=== PATIENT | male | born 1960 | race Caucasian/White ===

== ENCOUNTER 2021-05-22 16:48 | Inpatient (IN) | payer OTHER ==
[~2021-05-22] VITALS: Ht 160 cm; Wt 61.6 kg
[2021-05-22 19:15] LABS: BASOPHILS % (AUTO) 0.5 % (0.0-2.0); EOSINOPHILS % (AUTO) 1.1 % (1.0-6.0); HEMATOCRIT 41.5 % (41-53); HEMOGLOBIN 13.7 g/dL (13.5-17.5); LYMPHOCYTES # (AUTO) 1.4 K/uL (1.0-4.8); LYMPHOCYTES % (AUTO) 27.9 % (22.0-44.0); MEAN CORPUSCULAR HEMOGLOBIN 30.4 pg (26.0-34.0); MEAN CORPUSCULAR VOLUME 92 fL (80-100); MONOCYTES # (AUTO) 0.4 K/uL (0.1-1.0); MONOCYTES % (AUTO) 7.9 % (2.0-9.0); NEUTROPHILS # (AUTO) 3.2 K/uL (1.8-7.7); NEUTROPHILS % (AUTO) 62.6 % (40.0-70.0); PLATELET COUNT (AUTO) 195 K/uL (150-450); RED CELL DISTRIBUTION WIDTH 13.7 % (11.5-14.5)
[2021-05-22 19:26] LABS: ANION GAP 2 mmol/L (8-16); CALCIUM, TOTAL 8.5 mg/dL (8.8-10.5); CARBON DIOXIDE 32 mmol/L (22-29); CHLORIDE 107 mmol/L (98-107); CREATININE 0.75 mg/dL (0.60-1.30); GLOMERULAR FILTR. RATE CALC > 60 mL/min (>60); GLUCOSE,RANDOM 105 mg/dL (70-110); POTASSIUM 5.1 mmol/L (3.5-5.1); SODIUM SERUM 141 mmol/L (136-145); UREA NITROGEN, BLOOD 14 mg/dL (7-18)
[2021-05-22] MEDS ORDERED: DICYCLOMINE HCL 10 MG CAPSULE PO PRN (19:30)
[2021-05-22] MEDS ORDERED: MAG HYDROX/AL HYDROX/SIMETH ES 30 ML SUSPENSION UDCUP PO PRN (19:30)
[2021-05-22] MEDS ORDERED: LOPERAMIDE HCL 2 MG/15 ML SUSPENSION UDCUP PO PRN (19:30)
[2021-05-22] MEDS ORDERED: LORazepam 1 MG TABLET PO PRN (19:30)
[2021-05-22] MEDS ORDERED: MORPHINE SULFATE 2 MG/ML SYRINGE IVP PRN (19:30)
[2021-05-22] MEDS ORDERED: HYDROCODONE/ACETAMINOPHEN 5-325 MG TABLET PO PRN (19:30)
[2021-05-22] MEDS ORDERED: ALBUTEROL SULFATE 2.5 MG/0.5 ML NEB SOLUTION NEB PRN (19:30)
[2021-05-22] MEDS ORDERED: HydrOXYzine PAMOATE 50 MG CAPSULE PO PRN (19:30)
[2021-05-22] MEDS ORDERED: CloNIDine HCL 0.1 MG TABLET PO PRN (19:30)
[2021-05-22] MEDS ORDERED: IPRATROPIUM BROMIDE 0.5 MG/2.5 ML NEB SOLUTION NEB PRN (19:30)
[2021-05-22] MEDS ORDERED: BACLOFEN 10 MG TABLET PO PRN (19:30)
[2021-05-22] MEDS ORDERED: ACETAMINOPHEN 325 MG TABLET PO PRN ×2 (19:30)
[2021-05-22] MEDS ORDERED: ZOLPIDEM TARTRATE 5 MG TABLET PO PRN (19:30)
[2021-05-22] MEDS ORDERED: PROMETHAZINE HCL 25 MG TABLET PO PRN (19:30)
[2021-05-22] MEDS ORDERED: TraZODone HCL 50 MG TABLET PO PRN (19:30)
[2021-05-22] MEDS ORDERED: ONDANSETRON HCL 4 MG/2 ML VIAL IVP PRN (19:30)
[2021-05-22] MEDS ORDERED: MAGNESIUM HYDROXIDE SUSPENSION 30 ML UDCUP PO PRN (19:30)
[2021-05-22] MEDS ORDERED: IBUPROFEN 600 MG TABLET PO PRN (19:30)
[2021-05-22] MEDS ORDERED: BISACODYL 10 MG RECTAL RECTAL SUPPOSITORY PR PRN (19:30)
[2021-05-22] MEDS ORDERED: LORazepam 2 MG/ML VIAL IVP PRN (19:30)
[2021-05-22 19:32] LABS: ALANINE AMINOTRANSFERASE 28 U/L (12-78); ALBUMIN 3.5 g/dL (3.4-5.0); ALKALINE PHOSPHATASE 87 U/L (46-116); ASPARTATE AMINOTRANSFERASE 21 U/L (15-37); BILIRUBIN,TOTAL 0.2 mg/dL (0.1-1.0); TOTAL PROTEIN, SERUM 6.5 g/dL (6.4-8.2)
[2021-05-22] MEDS: SODIUM CHLORIDE 0.45% 1,000 ML IV SCH (20:25)
[2021-05-22 21:31] VITALS: BP 136/69
[2021-05-22 23:22] VITALS: BP 141/70
[2021-05-23] MEDS: ChlordiazePOXIDE HCL 25 MG CAPSULE PO SCH ×5 (00:50→23:08)
[2021-05-23] MEDS: HEPARIN SODIUM,PORCINE 5,000 UNITS/ML VIAL SQ SCH ×4 (00:54→23:08)
[2021-05-23 04:24] VITALS: BP 104/58
[2021-05-23 08:00] VITALS: BP 92/61
[2021-05-23] MEDS: MULTIVITAMINS, THERAPEUTIC TABLET PO SCH (09:00)
[2021-05-23] MEDS: THIAMINE 100 MG TABLET PO SCH (09:00)
[2021-05-23] MEDS: SODIUM CHLORIDE 0.45% 1,000 ML IV SCH ×2 (09:00→21:32)
[2021-05-23] MEDS: FOLIC ACID 1 MG TABLET PO SCH (09:00)
[2021-05-23 11:32] VITALS: BP 93/47
[2021-05-23 15:50] LABS: AMPHET/METH SCREEN,URINE NEGATIVE (NEGATIVE); BARBITURATE SCREEN, URINE NEGATIVE (NEGATIVE); BENZODIAZEPINES SCREEN,URINE NEGATIVE (NEGATIVE); CANNABINOID SCREEN,URINE NEGATIVE (NEGATIVE); COCAINE SCREEN,URINE NEGATIVE (NEGATIVE); METHADONE SCREEN, URINE NEGATIVE (NEGATIVE); OPIATE SCREEN,URINE NEGATIVE (NEGATIVE)
[2021-05-23 15:52] LABS: PHENCYCLIDINE SCREEN,URINE NEGATIVE (NEGATIVE)
[2021-05-23 16:35] VITALS: BP 104/52
[2021-05-23 20:00] VITALS: BP 108/57
[2021-05-23 23:35] VITALS: BP 103/70
[2021-05-24 05:18] VITALS: BP 106/65
[2021-05-24] MEDS: ChlordiazePOXIDE HCL 25 MG CAPSULE PO SCH ×3 (06:18→21:03)
[2021-05-24 08:11] VITALS: BP 101/61
[2021-05-24] MEDS: MULTIVITAMINS, THERAPEUTIC TABLET PO SCH (08:53)
[2021-05-24] MEDS: THIAMINE 100 MG TABLET PO SCH (08:53)
[2021-05-24] MEDS: FOLIC ACID 1 MG TABLET PO SCH (08:53)
[2021-05-24] MEDS: HEPARIN SODIUM,PORCINE 5,000 UNITS/ML VIAL SQ SCH ×3 (08:54→22:58)
[2021-05-24] MEDS: SODIUM CHLORIDE 0.45% 1,000 ML IV SCH (11:37)
[2021-05-24 12:17] VITALS: BP 118/66
[2021-05-24 14:25] LABS: FREE T4 (FREE THYROXINE) 0.71 ng/dL (0.76-1.46); THYROID STIMULATING HORMONE 1.59 uIU/mL (0.36-3.74)
[2021-05-24 20:50] VITALS: BP 129/62
[2021-05-25 05:00] VITALS: BP 109/64
[2021-05-25] MEDS: SODIUM CHLORIDE 0.45% 1,000 ML IV SCH (05:39)
[2021-05-25 07:37] VITALS: BP 95/57
[2021-05-25] MEDS: HEPARIN SODIUM,PORCINE 5,000 UNITS/ML VIAL SQ SCH ×3 (08:01→23:26)
[2021-05-25] MEDS: ChlordiazePOXIDE HCL 25 MG CAPSULE PO SCH (08:02)
[2021-05-25] MEDS: THIAMINE 100 MG TABLET PO SCH (08:02)
[2021-05-25] MEDS: MULTIVITAMINS, THERAPEUTIC TABLET PO SCH (08:02)
[2021-05-25] MEDS: FOLIC ACID 1 MG TABLET PO SCH (08:02)
[2021-05-25 19:34] VITALS: BP 115/65
[2021-05-26 05:33] VITALS: BP 93/56
[2021-05-26] MEDS: HEPARIN SODIUM,PORCINE 5,000 UNITS/ML VIAL SQ SCH (07:59)
[2021-05-26] MEDS: THIAMINE 100 MG TABLET PO SCH (07:59)
[2021-05-26] MEDS: FOLIC ACID 1 MG TABLET PO SCH (07:59)
[2021-05-26] MEDS: MULTIVITAMINS, THERAPEUTIC TABLET PO SCH (07:59)
[2021-05-26 08:24] VITALS: BP 95/62
[2021-05-26] MEDS ORDERED: FOLI0.4T6 PO (10:31)
[2021-05-26] MEDS ORDERED: THIA100T80 PO (10:32)
== END 2021-05-26 11:10 | DRG 897 ==
LOC: EMS 16:50 → 6S 20:45
PROVIDERS: ADMIT Hospitalist; ATTEND Hospitalist
DX: F10.139 Alcohol abuse with withdrawal, unspecified (principal); F15.10 Other stimulant abuse, uncomplicated; F14.90 Cocaine use, unspecified, uncomplicated; Y90.9 Presence of alcohol in blood, level not specified
CPT/HCPCS: 80053; 83690; 84439; 84443; 85025; 99285; G0480; J1644

== ENCOUNTER 2021-05-26 18:47 | Inpatient (IN) | payer OTHER ==
[~2021-05-26] VITALS: Ht 175.3 cm; Wt 64.5 kg
[~2021-05-26 18:47] MED LIST: FOLI0.4T6 PO; THIA100T80 PO
[2021-05-26 21:24] LABS: BASOPHILS % (AUTO) 0.7 % (0.0-2.0); EOSINOPHILS % (AUTO) 1.2 % (1.0-6.0); HEMOGLOBIN 13.8 g/dL (13.5-17.5); LYMPHOCYTES # (AUTO) 1.6 K/uL (1.0-4.8); LYMPHOCYTES % (AUTO) 23.1 % (22.0-44.0); MEAN CORPUSCULAR HEMOGLOBIN 30.1 pg (26.0-34.0); MEAN CORPUSCULAR HGB CONC 32.8 G/dL (31.0-37.0); MEAN CORPUSCULAR VOLUME 92 fL (80-100); MONOCYTES # (AUTO) 0.4 K/uL (0.1-1.0); MONOCYTES % (AUTO) 6.2 % (2.0-9.0); NEUTROPHILS # (AUTO) 4.6 K/uL (1.8-7.7); NEUTROPHILS % (AUTO) 68.8 % (40.0-70.0); PLATELET COUNT (AUTO) 202 K/uL (150-450); RED BLOOD CELL COUNT(AUTO) 4.58 MIL/uL (4.50-5.90); RED CELL DISTRIBUTION WIDTH 13.4 % (11.5-14.5)
[2021-05-26 21:33] LABS: ANION GAP 5 mmol/L (8-16); CALCIUM, TOTAL 8.9 mg/dL (8.8-10.5); CARBON DIOXIDE 30 mmol/L (22-29); CHLORIDE 107 mmol/L (98-107); CREATININE 0.64 mg/dL (0.60-1.30); GLOMERULAR FILTR. RATE CALC > 60 mL/min (>60); GLUCOSE,RANDOM 103 mg/dL (70-110); POTASSIUM 4.6 mmol/L (3.5-5.1); SODIUM SERUM 142 mmol/L (136-145); UREA NITROGEN, BLOOD 14 mg/dL (7-18)
[2021-05-26 21:38] LABS: COVID AG,FIA SOURCE NASOPHARYNGEAL
[2021-05-26 21:39] LABS: ALANINE AMINOTRANSFERASE 46 U/L (12-78); ALBUMIN 3.8 g/dL (3.4-5.0); ALKALINE PHOSPHATASE 74 U/L (46-116); ASPARTATE AMINOTRANSFERASE 41 U/L (15-37); BILIRUBIN,TOTAL 0.2 mg/dL (0.1-1.0); TOTAL PROTEIN, SERUM 6.6 g/dL (6.4-8.2)
[2021-05-26 21:46] LABS: APPEARANCE,URINE CLEAR (CLEAR); BILIRUBIN,URINE NEGATIVE (NEGATIVE); GLUCOSE, URINE (UA) NEGATIVE (NEGATIVE); KETONES,URINE NEGATIVE (NEGATIVE); LEUKOCYTE ESTERASE ,URINE NEGATIVE (NEGATIVE); NITRATE,URINE NEGATIVE (NEGATIVE); OCCULT BLOOD,URINE NEGATIVE (NEGATIVE); PH,URINE 5.5 (5.0-8.0); PROTEIN,URINE NEGATIVE (NEGATIVE); UROBILINOGEN,URINE 0.2 mg/dL (<=1.0)
[2021-05-26 21:52] LABS: AMPHET/METH SCREEN,URINE NEGATIVE (NEGATIVE); BARBITURATE SCREEN, URINE NEGATIVE (NEGATIVE); BENZODIAZEPINES SCREEN,URINE POSITIVE (NEGATIVE); CANNABINOID SCREEN,URINE NEGATIVE (NEGATIVE); COCAINE SCREEN,URINE NEGATIVE (NEGATIVE); METHADONE SCREEN, URINE NEGATIVE (NEGATIVE); OPIATE SCREEN,URINE NEGATIVE (NEGATIVE); PHENCYCLIDINE SCREEN,URINE NEGATIVE (NEGATIVE)
[2021-05-26] MEDS ORDERED: ONDANSETRON HCL 4 MG/2 ML VIAL IVP PRN (23:00)
[2021-05-26] MEDS ORDERED: ZOLPIDEM TARTRATE 5 MG TABLET PO PRN (23:00)
[2021-05-26] MEDS ORDERED: ACETAMINOPHEN 325 MG TABLET PO PRN (23:00)
[2021-05-26] MEDS ORDERED: MAGNESIUM HYDROXIDE SUSPENSION 30 ML UDCUP PO PRN (23:00)
[2021-05-27 00:01] VITALS: BP 125/62
[2021-05-27 04:05] VITALS: BP 102/57
[2021-05-27 08:22] VITALS: BP 93/53
[2021-05-27] MEDS ORDERED: FAMOTIDINE 20 MG TABLET PO SCH (09:00)
== END 2021-05-27 16:59 | DRG 881 ==
LOC: EMS 18:47 → 6S 23:00
PROVIDERS: ADMIT Internal Medicine; ATTEND Internal Medicine
DX: F32.9 Major depressive disorder, single episode, unspecified (principal); R45.851 Suicidal ideations; F22 Delusional disorders; Z02.89 Encounter for other administrative examinations; Z20.822 Contact with and (suspected) exposure to COVID-19
CPT/HCPCS: 80053; 81003; 85025; 99285; G0480